=== PATIENT | male | born 1960 | race Caucasian/White ===

== ENCOUNTER 2021-06-12 10:38 | Day surgery (SDC) | payer OTHER, SELFPAY ==
[2021-06-09 16:40] LABS: Hematocrit 39.9 % (40-54); Hemoglobin 13.5 g/dL (13.0-16.5); Mean Corp Hgb Conc 33.8 g/dL (32-36); Mean Corpuscular Hgb 31.3 pg (27.0-32.0); Mean Corpuscular Volume 92.6 fL (80-94); Mean Platelet Vol. 9.2 fl (6.2-12.0); Platelet Count 275 K/mm3 (150-450); RBC Distribution Width CV 14.3 % (11.6-14.6); RBC Distribution Width SD 48.8 fl (35.1-43.9); Red Blood Count 4.31 M/mm3 (4.6-6.2); White Blood Count 10.8 K/mm3 (4.4-11.0)
[2021-06-12] VITALS (8 sets, daily range): BP systolic 88–149; BP diastolic 49–90; PULSE 59–74; RESP 16–18; TEMP 36.9–37.2; O2SAT 92–100; BMI 23.8
[2021-06-12] MEDS: Lactated Ringers 1,000 ML 15 ML IV ×2 (11:45→14:00)
--- NOTE | 2021-06-12 11:56 | HP.PCM_ITS ---
History and Physical Date of Admission: 06/12/21 Intake Intake Visit Reasons: Bilateral Inguinal Hernia Allergies No Known Allergies Allergy (Verified 05/26/21 14:08) Medications NK 05/26/21 [History Confirmed 05/26/21] [facility] Medical History (Updated 05/26/21 @ 14:[address] Ayan Rollins MD) Inguinal hernia bilateral, non-recurrent Surgical History (Updated 05/26/21 @ 14:07 by Rea Feliz) History of colonoscopy (~2019) History of hand surgery History of right knee surgery Social History (Updated 05/26/21 @ 14:08 by Rea Feliz) Smoking Status: Current every day smoker HPI HPI HPI: BLANCO THOMSON, is a 61 M who presents to the office today for bilateral groin pain. Patient reports he developed bilateral pain and bulging at work about a week or 2 weeks ago. Patient says that both groins are hurting and bulging. No nausea or vomiting. No fevers or chills. Pain radiates down to the scrotum. ROS General General: No weight change or fatigue HEENT HEENT: No difficulty swallowing Endo Endocrine: No thyroid disease Musc Musculoskeletal: No back problems or arthritis Cardio Cardiovascular: No pacemaker, heart disease, atrial fibrillation, high blood pressure, heart attack, heart stent, palpitations or chest pain Psych Psychiatric: No depression or anxiety Resp Respiratory: No shortness of breath, No cough, No COPD, No asthma and No emphysema Gastro Gastrointestinal: No abdominal pain, No nausea or vomiting, No diarrhea, No constipation, No blood in stool, No acid reflux, No hemorrhoids, No ulcers, No gallbladder problem and No black,tarry stools Additional Details: Bilateral groin pain and bulging Byran Hematologic: No blood thinners Exam Const General: cooperative Orientation: alert and oriented x3 HENMT Head: normal to inspection Neck Neck: normal visual inspection and full ROM Chest Chest palpation & inspection: normal inspection of the chest Resp Effort & Inspection: normal respiratory effort Auscultation: clear to auscultation bilaterally Cardio Rate: regular rate Rhythm: regular rhythm GI Inspection: non-distended Palpation: soft, hernia direct inguinal bilaterally and nontender Skin General: no rashes or lesions noted Neuro General: patient alert and patient oriented x3 Extrem General: full ROM Psych Appearance: grossly normal Mental Status: mental status grossly normal Assessment and Plan Assessment and Plan (1) Inguinal hernia bilateral, non-recurrent: Status: Acute Qualifiers: Obstruction and gangrene presence: without obstruction or gangrene Recurrence: non-recurrent Qualified Code(s): K40.20 - Bilateral inguinal hernia, without obstruction or gangrene, not specified as recurrent Plan - Dr. Ayan Rollins MD: The patient has a bilateral inguinal hernia sustained at work. I discussed bilateral robotic assisted laparoscopic inguinal hernia repair with mesh. I discussed the procedure as well as the risks. I discussed the risks including not limited to bleeding, infection, injury to underlying organs such as bowel, blood supply to the testicle, bladder, blood vessels. Patient understands the risks and is willing to proceed. I discussed mesh placement with him in detail. Patient will be scheduled for surgery after approval. Ayan Rollins MD Pager: [facility] [address] [place] [address], [address] [place] [address] Office: I have re-examined the patient. There are no clinical changes since date of exam.
[2021-06-12] MEDS: Cefazolin 2 GM in 0.9% Normal Saline 100 ML IV (12:40)
[2021-06-12] MEDS: Bupivacaine Mpf 0.5% 30 ML VIAL (13:55)
--- NOTE | 2021-06-12 13:55 | OP.PCM_ITS ---
Problems Associated Problem List Diagnoses (1) Inguinal hernia bilateral, non-recurrent: Report of Operation Date of Procedure: 06/12/21 Pre-Operative Diagnosis: Bilateral inguinal hernias Post-Operative Diagnosis: Same Surgery/Procedure Performed:: Robotic assisted laparoscopic bilateral inguinal hernia repair with mesh Description of Procedure: Patient was brought back to the operating room and general anesthesia was induced. A Ahumada catheter was placed. The abdomen was prepped and draped in usual sterile fashion. A midline incision was made superior to the umbilicus and a Veress needle was placed into the abdomen. Drop test was performed. The Veress needle was then used to insufflate the abdomen to 15 mmHg and then it was removed. A port was placed in the abdomen. Camera was placed in the abdomen and there were no injuries from entry. Next the patient was placed in Trendelenburg position. Under direct visualization a right lateral 8 mm port was placed as well as a left lateral 8 mm port. The robot was then docked. Attention was paid to the left side first and electrocautery scissors were used to incise the peritoneum and dissection was carried inferiorly until the hernia sac was encountered and dissected free and reduced into the abdomen. Next ProGrip mesh was unfolded and placed in the left groin completely covering the hernia. The peritoneum was then reapproximated using a running 3-0V lock suture. This completely cover the mesh. Next attention was paid to the right groin. In the same fashion electrocautery scissors were used to make an incision in the right inguinal region and dissection was carried inferiorly until hernia sac was identified. There is a small indirect hernia. The progrip mesh was unfolded completely covering the he rnia. The peritoneum was then reapproximated using a running 3 OV lock suture to completely cover the mesh. Next the robot was undocked and the ports were removed. Incisions were injected with local anesthetic and closed with interrupted 4-0 Monocryl suture. Steri-Strips and bandages were applied. The scrotum was checked and contain both testicles. Grafts/Implants Used: ProGrip mesh bilaterally Admit VTE Documentation VTE Mechan Device Prophylaxis: SCD's
--- NOTE | 2021-06-12 13:58 | EX.PCM.DISCH ---
Discharge Instructions Procedure Hernia Diet Discharge Diet: Light diet - advance as tolerated Activity Discharge Activity: May Not Drive (for 2-3 days or while taking narcotic pain meds.) and May Shower (with the bandage in place 1-2 days after surgery.) Lifting Restrictions: 20 pounds for 4 weeks. Additional Activity Instructions:: Climbing stairs is fine, walking is encouraged. Sitting in bed may be uncomfortable. Sitting up using your lateral muscles (sitting up sideways) is usually more comfortable. Do not drive, work heavy equipment of sign legal documents for 24 hours. If your hernia repair was an ingunial repair, you may have scrotal swelling, an ice pack and/or athletic support can provide more comfort. Pain medications may cause nausea, you should typically eat light foods as you take your pain medications. Pain medications may also cause constipation. If you have difficulty with this, discuss with your doctor. Dressing / Incision Call your doctor if your incision/area has: Continuous Slow Oozing, Sudden Increased Bleeding, Increased Pain/ Swelling, Increased Redness and Foul Smelling Discharge Call your doctor if you observe: Fever of 101 or Higher Suture Line Care: Avoid Pulling/Pushing and Avoid Pinching/Bending Remove Dressing in: 2 days (Remove clear bandages in 2 days, remove Steri-Strips in 7 to 10 days.) Follow Up Care Please Follow Up With: Ayan Rollins MD When: Please call to schedule 2 week follow up appointment. [phone] Test Results: Test results from this visit will be discussed in further detail at your follow-up appointment, if applicable. Discharge Plan Admission Attending Provider: Ayan Rollins Primary Care Provider: Wilver Verde Discharge Orders/Prescriptions Prescriptions: New oxycodone-acetaminophen [Percocet] 5-325 mg tablet 1 tab PO Q4H PRN (Reason: pain) 5 Days Qty: 10 RF: 0 No Action NK RF: 0 Referrals / Follow Up: Wilver Verde MD [Primary Care Provider] - Disposition Disposition (needs filled in before D/C Order can be placed): Home, Self Care
[2021-06-12] MEDS: oxyCODONE 5 MG Tablet PO (15:33)
[2021-06-12] MEDS: Acetaminophen 325 MG Tablet PO (15:34)
== END 2021-06-12 23:59 | disposition home or self-care (01) ==
LOC: SDC 10:38 → AC 10:39
PROVIDERS: Anesthesiology; PCP Family Medicine; Referring Provider Surgery; Visit Provider Surgery
PROC: (CPT 49650; principal; 2021-06-12 12:20)
DX: K40.20 Bilateral inguinal hernia, without obstruction or gangrene, not specified as recurrent (principal); F17.200 Nicotine dependence, unspecified, uncomplicated
CPT/HCPCS: 49650; S2900; 00840; 36415; 85027; 93005; J7120; J2405

== ENCOUNTER → 2024-05-03 | Outpatient (CLI) | payer OTHER, SELFPAY ==
--- NOTE | 2024-05-03 07:49 | CT_ITS ---
PROCEDURE: PELVIS WITHOUT IV CONTRAST REASON FOR EXAM: Possible bilateral inguinal hernias. History of prior inguinal hernia repair. . TECHNIQUE: Pelvis CT with intravenous contrast. IV CONTRAST: COMPARISON: None. FINDINGS: Bladder: Unremarkable. Central prostatic calcifications. There is a 1.4 cm cystic structure in the central portion of the seminal vesicle. Reproductive Organs: Unremarkable. Bowel: Unremarkable. Appendix: Normal. Lymph nodes: No suspicious lymph node enlargement. Vasculature: Mild diffuse atherosclerotic calcifications are noted. Peritoneum / Retroperitoneum: No ascites. No free air. Small umbilical hernia containing fat. Small bilateral inguinal hernias containing fat slightly worse on the left side. Bones: Unremarkable. CT/Pelvis without IV Contrast IMPRESSION: Small bilateral inguinal hernias containing fat. Small umbilical hernia. Cystic structure in the seminal vesicles. One or more dose reduction techniques were used (e.g., Automated exposure contr ol, adjustment of the mA and/or kV according to patient size, use of iterative reconstruction technique). Reading Location: [place] [address]
== END | disposition home or self-care (01) ==
LOC: CT 07:49
PROVIDERS: PCP Family Medicine; Referring Provider Surgery; Visit Provider Surgery
DX: K40.21 Bilateral inguinal hernia, without obstruction or gangrene, recurrent (principal)
CPT/HCPCS: 72192

== ENCOUNTER 2024-06-07 09:20 | Day surgery (SDC) | payer OTHER, SELFPAY ==
[2024-05-26 07:36] LABS: Hematocrit 42.2 % (40-54); Hemoglobin 14.4 g/dL (13.0-16.5); Mean Corp Hgb Conc 34.1 g/dL (32-36); Mean Corpuscular Hgb 32.1 pg (27.0-32.0); Mean Platelet Vol. 9.3 fl (6.2-12.0); Platelet Count 291 K/mm3 (150-450); RBC Distribution Width CV 13.7 % (11.6-14.6); RBC Distribution Width SD 47.2 fl (35.1-43.9); Red Blood Count 4.49 M/mm3 (4.6-6.2); White Blood Count 9.9 K/mm3 (4.4-11.0)
--- NOTE | 2024-05-29 09:43 | PAT.ANESEVAL ---
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 When Was Last Pacemaker Check QUESTION #4 FULL TEXT: You/Your Family Experience fever (hyperthermia) with Anesthesia Last Oral Intake Last Oral intake: Last Oral Intake NPO since Meds taken in AM with sips of water? Meds patient instructed to take am of surgery PONV PONV - security guard dispatcher: PONV - security guard dispatcher Female No 05/24/24 08:44 HX of Motion Sickness No 05/24/24 08:44 HX of N/V After Surgery No 05/24/24 08:44 Non-Smoker No 05/24/24 08:44 Duration of Surgery greater Yes 05/24/24 08:44 than 60 minutes Number of Risk Factors 1 05/24/24 08:44 PONV Score Low Risk 05/24/24 08:44 Height & Weight Height & Weight: Anesthesia: Height & Weight Height 5 ft 7 in 05/08/24 14:40 Respiratory Assessment Respiratory Assessment - security guard dispatcher: Respiratory Tract Infection Hx - security guard dispatcher Hx Respiratory Tract Infection No 05/24/24 08:44 STOP Sleep Apnea STOP Sleep Apnea - security guard dispatcher: STOP Sleep Apnea - security guard dispatcher Hx Hypertension No 05/24/24 08:44 Hx Sleep Apnea No 05/24/24 08:44 CPAP BIPAP Do you snore loudly (louder Yes 05/24/24 08:44 than talking or can be heard Do you often feel tired/ No 05/24/24 08:44 fatigued/ sleepy during daytime? Has anyone observed you stop No 05/24/24 08:44 breathing during sleep? STOP Results Negative 05/24/24 08:44 QUESTION #5 FULL TEXT : Do you snore loudly (louder than talking or can be heard through closed doors)? 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 Specify any problems Hx of Preganancy in last 3 N/A 05/24/24 08:44 Months Nurse Filling Out Transfusion VCHRISTIN 05/24/24 08:44 & Questions: Date: 05/24/24 05/24/24 08:44 Time: 08:45 05/24/24 08:44 Patient unable to answer at this time (ie. confused, unrespo /Reproduction History /Reproductive History - security guard dispatcher: /Reproductive Hx- security guard dispatcher Hx Now No 05/24/24 08:44 Gestational Age (in weeks): EDC: Hx Hx Para Hx Section SAB No 05/24/24 08:44 [facility] Medical History Wears glasses Wears dentures Alcohol use Smoker Cardiology follow-up encounter History of stress test Inguinal hernia bilateral, non-recurrent Allergy/AdvReac Type Severity Reaction Status Date / Time No Known Allergies Allergy Verified 05/24/24 08:39 Surgical History History of bilateral inguinal hernia repair History of cardiac catheterization History of hand surgery History of right knee surgery History of colonoscopy (~2018) Social History Smoking Status: Current every day smoker tobacco type: cigarettes Audit: Pertinent Findings Pertinent Findings EKG Perinent findings: 05/26/2024. Normal sinus rhythm 65 bpm. Right axis deviation. Recommendation Anesthesia Recommendation Anesthesia recommendation: OPTIMIZED for anesthesia
[2024-06-07] VITALS (12 sets, daily range): BP systolic 98–144; BP diastolic 69–83; PULSE 61–78; RESP 14–16; TEMP 36.1–37.2; O2SAT 95–100; BMI 24.1
[2024-06-07] MEDS: 0.9% Normal Saline (1000mL) 1,000 ML 15 ML IV (10:01)
--- NOTE | 2024-06-07 10:21 | PRE.ANES_ITS ---
ASA Classification* ASA Classification ASA Classification: 2 Assessment & Plan Anesthesia* Anesthesia Assessment Anesthesia Assessment: Discussed sedation and/or anesthesia options, risks, benefits, and alternatives with patient/parents/legal guardian/POA. Questions invited. The patient/parents/legal guardian/POA seems to understand and agrees to proceed with anesthesia plan. Reviewed the physical assessment, medical history, allergy history and patient home medications list prior to surgery/procedure/anesthetic and documented any changes. Performed airway and anesthesia risk assessments. Anesthesia Type Anesthesia Type: General History Source History Obtained from:: Patient and Chart Anesthesia Focused Assessment* Temperature: 97 F Pulse Rate: 61 Blood Pressure: 144/82 Respiratory Rate: 16 Pulse Ox: 100 Oxygen Delivery Method: Room Air Airway Assessment Mouth opens: >3 cm Mallampati Score: II Teeth Condition: Dentures (Patient has full dentures on top. It is out.) and Missing (Missing several teeth on the bottom. Rest are tight.) Neck Range of motion (ROM): Full ROM Focused Labs Anesthesia Preop lab: CBC WBC 9.9 K/mm3 (4.4-11.0) 05/26/24 07:25 05/26/24 RBC 4.49 M/mm3 (4.6-6.2) L 05/26/24 07:25 05/26/24 Hgb 14.4 g/dL (13.0-16.5) 05/26/24 07:25 05/26/24 Hct 42.2 % (40-54) 05/26/24 07:25 05/26/24 Plt Count 291 K/mm3 (150-450) 05/26/24 07:25 05/26/24 CHEMISTRY Potassium 4.1 mmol/L (3.5-5.1) 04/28/22 07:04/28/22 Sodium 138 mmol/L (136-145) 04/28/22 07:04/28/22 BUN 15 mg/dL (7-18) 04/28/22 07:04/28/22 Creatinine 0.96 mg/dL (0.70-1.30) 04/28/22 07:04/28/22 Glucose 100 mg/dL (74-106) 04/28/22 07:04/28/22 COAG Pre-Assessment Diagnosis/Proposed Procedure Planned Operative Procedure(s): (B) Hernia, Open recurrent Inguinal w/ Mesh Anesthesia History 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 When Was Last Pacemaker Check QUESTION #4 FULL TEXT: You/Your Family Experience fever (hyperthermia) with Anesthesia Last Oral Intake Last Oral intake: Last Oral Intake NPO since 06:00 06/07/24 10:02 Meds taken in AM with sips of No 06/07/24 10:02 water? Meds patient instructed to take am of surgery Any additional information?: Yes NPO since: 06:00 (Patient had black coffee at 6 AM.) PONV PONV - license registration examiner: PONV - license registration examiner Female No 05/24/24 08:44 HX of Motion Sickness No 05/24/24 08:44 HX of N/V After Surgery No 05/24/24 08:44 Non-Smoker No 05/24/24 08:44 Duration of Surgery greater Yes 05/24/24 08:44 than 60 minutes Number of Risk Factors 1 05/24/24 08:44 PONV Score Low Risk 05/24/24 08:44 Height & Weight Height & Weight: Anesthesia: Height & Weight Height 5 ft 7 in 06/07/24 10:02 Weight: 70 kg 06/07/24 10:02 Body Mass Index (BMI) 24.1 06/07/24 10:02 Respiratory Assessment Respiratory Assessment - license registration examiner: Respiratory Tract Infection Hx - license registration examiner Hx Respiratory Tract Infection No 05/24/24 08:44 STOP Sleep Apnea STOP Sleep Apnea - license registration examiner: STOP Sleep Apnea - license registration examiner Hx Hypertension No 05/24/24 08:44 Hx Sleep Apnea No 05/24/24 08:44 CPAP BIPAP Do you snore loudly (louder Yes 05/24/24 08:44 than talking or can be heard Do you often feel tired/ No 05/24/24 08:44 fatigued/ sleepy during daytime? Has anyone observed you stop No 05/24/24 08:44 breathing during sleep? STOP Results Negative 05/24/24 08:44 QUESTION #5 FULL TEXT : Do you snore loudly (louder than talking or can be heard through closed doors)? 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 Specify any problems Hx of Preganancy in last 3 N/A 05/24/24 08:44 Months Nurse Filling Out Transfusion VCHRISTIN 05/24/24 08:44 & Questions: Date: 05/24/24 05/24/24 08:44 Time: 08:45 05/24/24 08:44 Patient unable to answer at this time (ie. confused, unrespo /Reproduction History /Reproductive History - license registration examiner: /Reproductive Hx- license registration examiner Hx Now No 05/24/24 08:44 Gestational Age (in weeks): EDC: Hx Hx Para Hx Section SAB No 05/24/24 08:44 Active Medications Active Medications: Current Medications Generic Name Dose Route Start Last Admin Trade Name Freq PRN Reason Stop Dose Admin Cefazolin Sodium 2 gm/ N/A 20 mls @ 400 mls/hr 06/07/24 11:00 IV 06/07/24 11:02 PREOP ONE Sodium Chloride 1,000 mls @ 15 mls/hr 06/07/24 09:45 06/07/24 10:01 IV 15 mls/hr .Q48H CARLY Administration PFSH Medical History Wears glasses Wears dentures Alcohol use Smoker Cardiology follow-up encounter History of stress test Inguinal hernia bilateral, non-recurrent Home Medications ?Medication ?Instructions ?Recorded ?Last Taken ?Type NK 06/07/24 Unknown History Allergy/AdvReac Type Severity Reaction Status Date / Time No Known Allergies Allergy Verified 05/24/24 08:39 Surgical History History of bilateral inguinal hernia repair History of cardiac catheterization History of hand surgery History of right knee surgery History of colonoscopy (~2019) Social History Smoking Status: Current every day smoker tobacco type: cigarettes Review of Systems (Anesthesia) ROS Narrative System reviewed and no additional complaints, except as documented.
--- NOTE | 2024-06-07 11:00 | LIP_PTH ---
PATIENT: BLANCO THOMSON Jr. [place] [facility] [place] U[place][id number] AGE/SX: 64/M ROOM: RE06/07/[address]: Dr. Ayan Rollins MD : 1960 BED: DIS: 06/07/2024 SPEC #: [id number] RECD: 06/08/24 10:18 STATUS: JOZEF REEmilia #: [id number] STANLEY: 06/07/24 11:[address]: Ayan Rollins DEPT: SURGICAL PATHOLOGY RECD BY: Wally Luz ENTERED: 06/08/24 10:19 SP TYPE: LIPOMA OTHR DR: MD Dr. Wilver Maddox MD Tissues: A - LIPOMA OF CORD B - LIPOMA OF CORD Procedures: Surgery Specimen Level III HEADER OPERATION: Bilateral hernia, open recurrent inguinal with mesh PRE-OP DIAGNOSIS: Bilateral recurrent inguinal hernia TISSUE SUBMITTED: A- Left cord lipoma, B- Right cord lipoma MICROSCOPIC DIAGNOSIS A. Left cord lipoma, excision: Highly vascular mature adipose and fibrous tissueB. Right cord lipoma, excision: Highly vascular mature adipose and fibrous tissue Fartun lamb MD, 06/15/2024 MICROSCOPIC DESCRIPTION Slides are reviewed. GROSS DESCRIPTION A. Received in fixative is one container labeled with the patient's name and designated Left cord lipoma. The specimen consists of a piece of fatty tissue measuring 2.5 x 2.3 x 0.9cm. A physician representative section is submitted in one cassette. B. Received in fixative is one container labeled with the patient's name and designated Right cord lipoma. The specimen consists of a piece of fatty tissue measuring 3 x 2.5 x 1.5cm. A physician representative section is submitted in one cassette. 06/08/2024 CPT:86446s7, TC:4
--- NOTE | 2024-06-07 11:08 | HP.PCM_ITS ---
History and Physical Date of Admission: 06/07/24 Intake Vital Signs 04/13/2512:25 05/08/2513:40 Height 5 ft 7 in 5 ft 7 in Weight: 159 lb 160 lb BMI 24.9 25.0 BP 104/76 107/73 Blood Pressure Location Rt brachial Rt brachial Position Sitting Sitting Respiration 17 18 Pulse 68 68 Pulse Source Monitor Monitor Temp 98 F Temp Source Temporal Pulse Oximetry (%) 97 97 Oxygen Delivery Method room air room air Intake Visit Reasons: Discuss CT and surgery-[facility] Chief Complaint: discuss CT and surgery Is patient in pain?: Yes Allergies No Known Allergies Allergy (Verified 05/08/24 14:41) PFS Medical History Wears glasses Wears dentures Alcohol use Smoker Cardiology follow-up encounter History of stress test Inguinal hernia bilateral, non-recurrent Surgical History History of bilateral inguinal hernia repair History of cardiac catheterization History of hand surgery History of right knee surgery History of colonoscopy (~2018) Social History Smoking Status: Current every day smoker tobacco type: cigarettes HPI HPI HPI: Patient is a 64-year-old male who is here to follow-up. He had a CT scan done. He is still feeling pain and bulging on the left as well as pain on the right ROS General General: No weight change, appetite, fatigue, colon cancer, breast cancer or weakness HEENT HEENT: No difficulty swallowing, eye injury, eye surgery, swollen glands or hoarseness Endo Endocrine: No thyroid disease, diabetes mellitus, thyroid cancer, Hair loss, heat intolerance or cold intolerance Skin Skin: No rash or changing moles Musc Musculoskeletal: No back problems, arthritis, rheumatoid arthritis, gout or joint pain Cardio Cardiovascular: No murmur, pacemaker, heart disease, atrial fibrillation, high blood pressure, heart attack, heart stent, palpitations, shortness of breat with exertion or chest pain Psych Psychiatric: No depression, anxiety or hearing voices Resp Respiratory: No shortness of breath, No sleep apnea, No cough, No COPD, No asthma, No emphysema and No wheezing Gastro Gastrointestinal: No abdominal pain, No nausea or vomiting, No diarrhea, No constipation, No blood in stool, No acid reflux, No hemorrhoids, No ulcers, No gallbladder problem and No black,tarry stools Additional Details: Bilateral groin pain and bulging Bryan Hematologic: No blood thinners, No blood disorders, No bleeding, No anemia and No blood clots Neuro Neurologic: No system reviewed and no additional complaints, except as documented, No as per HPI, No abnormal gait, No abnormal hearing, No abnormal movements, No abnormal speech, No behavioral changes, No burning sensations, No confusion, No convulsions, No disequilibrium, No dizziness, No localized weakness, No frequent falls, No headache(s), No lack of coordination, No loss of vision, No memory loss, No numbness, No other visual disturbances, No radicular pain, No restless legs, No sensory deficit, No syncope, No tingling, No tremor(s), No weakness and No other Exam Const General: cooperative Orientation: alert and oriented x3 HENMT Head: normal to inspection Neck Neck: normal visual inspection and full ROM Chest Chest palpation & inspection: normal inspection of the chest Resp Effort & Inspection: normal respiratory effort Auscultation: clear to auscultation bilaterally Cardio Rate: regular rate Rhythm: regular rhythm GI Inspection: non-distended Palpation: soft and nontender Skin General: no rashes or lesions noted Neuro General: patient alert and patient oriented x3 Extrem General: full ROM Psych Appearance: grossly normal Mental Status: mental status grossly normal Assessment and Plan Assessment and Plan (1) Inguinal hernia recurrent bilateral: Status: Acute Plan: Patient had a CT scan which showed bilateral small inguinal hernias containing fat. The patient is still symptomatic. I discussed repairing one-sided a time open as he has already had a laparoscopic repair. The patient was insistent that he have both fix at the same time. I did warn him that it was would be a much rougher recovery. The patient would like to proceed anyway. I discussed bilateral recurrent inguinal hernia repair with mesh. I discussed the risks including but not limited to bleeding, infection, nerve injury, chronic groin pain. Ayan Rollins MD Pager: [facility] [address] [place] [address], [address] [place] [address] Office: I have examined the patient and the H&P has been reviewed. There are no clinical changes since date of exam.
[2024-06-07] MEDS: Cefazolin 2 GM in Syringe IV (12:05)
[2024-06-07] MEDS: Bupiv/Epi 0.25% 30 ML Vial (12:13)
--- NOTE | 2024-06-07 13:05 | PCM.OPRPT ---
Operative Report (Standard) Operative Information Date of Procedure: 06/07/24 Pre-Operative Diagnosis: Bilateral recurrent inguinal hernias Post-Operative Diagnosis: Same Surgery/Procedure Performed: Open bilateral recurrent inguinal hernia repair with mesh business education instructor: Yes Portfolio Mgr: Gisele Dominguez Tasks completed by conventions assistant: Opening, Closing and Retracting Type of Anesthesia: General/Regional RN Documented Start/Stop Times: Operation Date: 06/07/24 11:00 Case Time Into Pre-Op 06/07/24 09:42 Out of Pre-Op 06/07/24 11:50 Anesthesia Start 06/07/24 11:53 Into Room 06/07/24 11:53 Procedure Start 06/07/24 12:13 Procedure End 06/07/24 13:03 Procedure Start Time: 12:13 Procedure Stop Time: 13:03 Select all DRAINS/GRAFTS/IMPLANTS that apply: Implanted device Implanted device details: Bilateral Bard keyhole mesh Estimated Blood Loss: 10 Specimen collected: Yes Description of specimen(s) removed: Left and right cord lipomas Description of surgery: Patient was brought back the operating room and general anesthesia was induced. The abdomen was prepped and draped in usual sterile fashion. The left side was addressed first. An incision was injected with local anesthetic and then incised using a scalpel. Dissection was carried down to a peripheral vein which was doubly ligated and divided. Next dissection was carried down to the external aponeurosis. The external aponeurosis was nicked with the scalpel and then scissors were used to divide it to the external ring. The inguinal cord was elevated and a Bebo was placed underneath and it was lifted and all of its adhesions were lysed. The patient had a direct inguinal hernia and a cord lipoma. The cord lipoma was removed. The Bard keyhole mesh was tacked to the lateral portion of the shelving inguinal ligament with interrupted 2-0 PDS sutures. It was then tacked to the medial portion using the conjoined tendon the ends of the mesh were wrapped around the cord and sutured to itself using 2-0 PDS in the tails were tucked under the external aponeurosis. The area was irrigated and suctioned dry. The external aponeurosis was reapproximated using 3-0 Vicryl suture starting the lateral portion stopping at the internal ring. Next the subcutaneous fascia was closed with interrupted 3 OV acral suture. The skin was closed with a running 4-0 Vicryl suture Dermabond was applied. Next attention was paid to the right side. In the same fashion an area was marked and injected with local anesthetic and then incised. The vein was doubly ligated and divided. The external aponeurosis was incised and divided down to the external ring. The cord was elevated and a [place] was placed underneath it. The patient had a large lipoma which was removed. There appeared to be weakness in the floor of the inguinal domonique The keyhole mesh was tacked to the pubic tubercle using 2-0 PDS suture. Next the inguinal shelving region was sutured to the mesh using interrupted 2-0 PDS sutures. The medial portion was tacked to the conjoined tendon using interrupted 2-0 PDS sutures. The tails were wrapped around the cord and sutured to themselves and tucked under the external aponeurosis. The external aponeurosis was then reapproximated starting laterally stopping at the internal ring. The subcutaneous Sunni's fascia was closed using interrupted 3-0 Vicryl sutures and the skin was closed with a running 4-0 Monocryl suture. Dermabond was applied. The scrotum was checked the end of the case contained both testicles. Patient was taken to PACU stable condition and tolerated the procedure well. Surgical Findings: Cord lipoma bilaterally Complications Complications: No Admit VTE Documentation VTE Mechan Device Prophylaxis: SCD's
--- NOTE | 2024-06-07 13:18 | DCINST_ITS ---
Discharge Instructions Procedure Hernia Diet Discharge Diet: Light diet - advance as tolerated Activity Discharge Activity: May Not Drive (for 2-3 days or while taking narcotic pain meds.) and May Shower (with the bandage in place 1-2 days after surgery.) Lifting Restrictions: 15 pounds for 6 weeks. Additional Activity Instructions:: Climbing stairs is fine, walking is encouraged. Sitting in bed may be uncomfortable. Sitting up using your lateral muscles (sitting up sideways) is usually more comfortable. Do not drive, work heavy equipment of sign legal documents for 24 hours. If your hernia repair was an inguinal repair, you may have scrotal swelling, an ice pack and/or athletic support can provide more comfort. Pain medications may cause nausea, you should typically eat light foods as you take your pain medications. Pain medications may also cause constipation. If you have difficulty with this, discuss with your doctor. Alternate ibuprofen and Tylenol for pain control, oxycodone for breakthrough pain Dressing / Incision Call your doctor if your incision/area has: Continuous Slow Oozing, Sudden Increased Bleeding, Increased Pain/ Swelling, Increased Redness and Foul Smelling Discharge Call your doctor if you observe: Fever of 101 or Higher Suture Line Care: Avoid Pulling/Pushing and Avoid Pinching/Bending Cleanse incision/area with: Soap & Water Follow Up Care Please Follow Up With: Ayan Rollins MD When: Please call to make 2 week follow up appt. [phone] Test Results: Test results from this visit will be discussed in further detail at your follow- up appointment, if applicable. Discharge Plan Admission Attending Provider: Ayan Rollins Primary Care Provider: Wilver Verde Consulting Providers: Dixon Banegas Instructions Print Language: Faroese Discharge Orders/Prescriptions Prescriptions: New oxycodone 5 mg Tablet 5 - 10 mg PO Q4H PRN PRN (Reason: Pain Score 4-10) 5 Days Qty: 20 0RF Referrals / Follow Up: Wilver Verde MD [Primary Care Provider] - Disposition Disposition (needs filled in before D/C Order can be placed): Home, Self Care
--- NOTE | 2024-06-07 13:22 | PCM.POST.ANE ---
Anesthesia: Postop Eval I Current Vital Signs Temperature: 97.6 F Pulse Rate: 73 Blood Pressure: 99/74 Respiratory Rate: 16 Pulse Ox: 98 Oxygen Delivery Method: Room Air Assessment Airway patent: Yes Spontaneous unlabored respirations: Yes Mental status: Awake and Calm nausea: No Vomiting: No Anesthesia Complication: No Fluid Hydration Crystalloid volume administer (ml): 1,200 Total IV fluid infused: 1,200 Progress Note Anesthesia document: Postop Eval 1 completed: Yes
--- NOTE | 2024-06-07 14:19 | POSTOPAN2_ITS ---
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 Spontaneous unlabored Yes 06/07/24 13:23 [email or web address] respirations Mental status Awake,Calm 06/07/24 13:23 [email or web address] nausea No 06/07/24 13:23 [email or web address] [email or web address] Vomiting No 06/07/24 13:23 [email or web address] Anesthesia Postop Eval I: Fluid Summary Crystalloid volume administer 1,200 06/07/24 13:23 [email or web address] (ml) Colloids volume administered ( ml) Blood Product volume administered (ml) Total IV fluid infused 1,200 06/07/24 13:23 [email or web address] Anesthesia Postop Eval I: Summary Notes Anesthesia Complication No 06/07/24 13:23 [email or web address] Anesthesia Complication Comment: Post-operative progress note Anesthesia: Postop Eval II Evaluation Mental status: Awake Pain Level: 2 nausea: No Vomiting: No
--- NOTE | 2024-06-07 14:19 | PCM.POSTANE2 ---
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 Spontaneous unlabored Yes 06/07/24 13:23 [email or web address] [email or web address] respirations Mental status Awake,Calm 06/07/24 13:23 [email or web address] [email or web address] nausea No 06/07/24 13:23 WARDROBE [email or web address] Vomiting No 06/07/24 13:23 [email or web address] [email or web address] Anesthesia Postop Eval I: Fluid Summary Crystalloid volume administer 1,200 06/07/24 13:23 [email or web address] [email or web address] (ml) Colloids volume administered ( ml) Blood Product volume administered (ml) Total IV fluid infused 1,200 06/07/24 13:23 [email or web address] [email or web address] Anesthesia Postop Eval I: Summary Notes Anesthesia Complication No 06/07/24 13:23 [email or web address] [email or web address] Anesthesia Complication Comment: Post-operative progress note Anesthesia: Postop Eval II Evaluation Mental status: Awake Pain Level: 2 nausea: No Vomiting: No
[2024-06-07] MEDS: oxyCODONE 5 MG Tablet PO (14:49)
[2024-06-07] MEDS: Acetaminophen 325 MG Tablet 650 MG PO (14:49)
== END 2024-06-07 15:25 | disposition home or self-care (01) ==
LOC: SDC 09:26 → AC 09:27
PROVIDERS: Anesthesiology; PCP Family Medicine; Referring Provider Surgery; Visit Provider Surgery
PROC: (CPT 49520; principal; 2024-06-07 10:45)
DX: K40.21 Bilateral inguinal hernia, without obstruction or gangrene, recurrent (principal); F17.210 Nicotine dependence, cigarettes, uncomplicated; D17.5 Benign lipomatous neoplasm of intra-abdominal organs
CPT/HCPCS: 49520; 00830; 36415; 85027; 88304; 93005; C1781; J2405